=== PATIENT | male | born 1955 | race Caucasian/White ===

== ENCOUNTER 2025-01-27 19:31 | Emergency (ER) | payer MEDICARE, OTHER, SELFPAY ==
[2025-01-27 19:33] VITALS: BP 132/88
[2025-01-27 19:43] VITALS: BP 143/79
[2025-01-27 19:56] VITALS: BMI 34.6
[2025-01-27] MEDS: TENIVAC 0.5 ML IM (19:59)
[2025-01-27 20:00] VITALS: BP 140/72
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
[2025-01-27 20:27] LABS: Hematocrit 40.4 % (39.0-52.0); Hemoglobin 14.1 g/dL (13.0-18.0); Mean Corp Hgb Conc. 34.9 g/dL (33.0-37.0); Mean Corpuscular Volume 90.2 fL (80.0-94.0); Nucleated Red Blood Cells % 0 % (-); Platelet Count 159 10^3/uL (130-400); Red Cell Dist. Width 12.9 % (11.5-14.5)
[2025-01-27 20:38] LABS: ALT (SGPT) 24 U/L (0-50); AST (SGOT) 31 U/L (17-59); Albumin 4.5 g/dl (3.5-5.0); Alkaline Phosphatase 74 U/L (38-126); Blood Urea Nitrogen 19 mg/dl (9-20); Calcium 9.1 mg/dl (8.4-10.2); Carbon Dioxide 24 mmol/L (22-30); Chloride 107 mmol/L (98-107); Estimated Creatinine Clearance 80 ml/min; Glucose 130 mg/dl (70-99); Potassium 3.7 mmol/L (3.5-5.1); Sodium 138 mmol/L (135-145); Total Protein 7.5 g/dl (6.3-8.2); eGFR > 60.00
[2025-01-27 21:28] VITALS: BP 124/69
[2025-01-27 22:00] VITALS: BP 138/81
[2025-01-27] MEDS: DILAUDID 1 MG IV (22:04)
[2025-01-27 23:00] VITALS: BP 121/76
== END 2025-01-28 00:56 | disposition home or self-care (01) ==
LOC: EMR 19:31
PROVIDERS: EMERGENCY PHYSICIAN Emergency Medicine; FAMILY PHYSICIAN Family Medicine
DX: Z04.1 Encounter for examination and observation following transport accident (principal); V96.1 Hang-glider accident injuring occupant; Z23 Encounter for immunization; Z79.01 Long term (current) use of anticoagulants
CPT/HCPCS: 99284; 96374; 90471; 70450; 71260; 72125; 73070; 73590; 74177; 80053; 85025; 90714; 93005; Q9967